=== PATIENT | female | born 1960 | race Caucasian/White ===

== ENCOUNTER 2022-01-25 08:44 | Day surgery (SDC) | payer BC, SELFPAY ==
[2022-01-25] VITALS (16 sets, daily range): BP systolic 135–172; BP diastolic 62–82; PULSE 47–71; RESP 16; TEMP 36.1–37; O2SAT 92–100; BMI 24.2
[2022-01-25] MEDS: LACTATED RINGERS 1000 ML 1,000 ML 100 ML IV ×2 (09:00→11:51)
[2022-01-25] MEDS: SODIUM CHLORIDE 0.9 % (FLUSH) 10 ML SYRINGE IVF (09:23)
[2022-01-25 09:35] LABS: Hemoglobin* 13.2 gm/dL (12.0-16.0)
[2022-01-25 10:07] LABS: Creatinine* 0.8 mg/dL (0.5-1.5); Est. Creatinine Clearance* 46.73; Estimated Glomerular Filt Rate 83.78
--- NOTE | 2022-01-25 11:04 | P.PCN_ITS ---
Procedure Note Time Seen by Provider: 11:04 Date Seen: 01/25/22 Date of procedure: 01/25/22 Will [facility] bill your pro fee for this procedure?: Yes Pre-op diagnosis: Right adnexal cyst. Procedure: Laparoscopic Right oophorectomy, bilateral salpingectomy Procedure Description: Preoperative diagnosis: 61-year-old with right ovarian cyst. Postoperative diagnosis: Right ovarian cyst approximately 6 cm in largest diameter, left ovarian cyst approximately 2 cm in largest diameter. Both with serous/clear fluid. Procedure: Laparoscopic bilateral salpingo oophorectomy Anesthesia: General endotracheal, local Surgeon: Sheila Butler MD Dough Maker: Vickie Gatica MD EBL: 5 mL Urine output: 100 mL clear urine IVF: 1200 ml Specimen: Left ovary and tube, right ovary and tube both to pathology Findings: On exam under anesthesia: The uterus was midposition, less than 8 week size, mobile, without masses or nodularity palpable. Adnexa were without mass or fullness bilaterally. The uterus sounded to 7 cm. On laparoscopy: The uterus, bilateral fallopian tubes and appendix a both appeared normal. Both ovaries had cysts. The right ovary had approximately 6 cm cyst, left ovary proximally 2 cm. Both with serous fluid within. Procedure: Krista was taken to the operating room where general anesthetic was found to be adequate. She was placed in the dorsal lithotomy position and an exam under anesthesia was performed with findings stated above. She was then prepped and draped in a normal sterile manner. A Myers catheter was then placed. A bivalve speculum was then placed in the vaginal canal to visualize the cervix. The anterior lip of the cervix was grasped with an a long Allis clamp. The cervix was dilated to Hegar 6. Uterus was sounded to 7 cm. A [employer] uterine manipulator was then placed. Attention was then turned to performing the laparoscopic portion of the procedure. All incisions were injected with 0.5% Marcaine prior to incision. A vertical 5 mm infraumbilical, incision, was made and a 5 mm trocar placed under direct visualization with the laparoscope. The abdomen was then insufflated with carbon dioxide gas to a pressure of 15 mm of mercury. To bilateral lower quadrant trocars were then placed under direct visualization. Both were placed approximately 3-4 finger breaths medial to the ischial crests. The right trocar was 5 mm the left trocar was 11 mm. A diagnostic laparoscopy was then performed with findings stated above. The right fallopian tube was grasped at the fimbriated and with a sliding graspe r. The infundibulopelvic ligament was then cauterized and divided using the LigaSure dissecting forceps. Sequential pedicles were then formed to the level of the cornua. The fallopian tube and utero-ovarian ligament were cauterized and ligated at the cornua. The tube and ovary were placed in the posterior cul-de-sac. The left fallopian tube and ovary were removed in a similar manner. An Endo-Catch bag was advanced through the 11 mm port and both ovaries and tubes were placed into the catch bag. The ovaries and tubes were then removed through the 11 mm port. The fascia of the 11 mm port was reapproximated using the Jaison-Ant fascial closure device using 0 Vicryl suture. Hemostasis was noted of all pedicles. The trocars were then removed under direct visualization. The CO2 gas was allowed to escape the infraumbilical port prior to its removal. All incisions were reapproximated using 4-0 Monocryl in a running subcuticular manner. LiquiBand skin adhesive was then applied and adhesive dressings applied over each incision. The uterine manipulator and Myers catheter were removed. The patient tolerated this procedure well. Sponge, lap and instrument counts were correct x2 at the end of the procedure and the patient was taken to the recovery area in stable condition. Anesthesia: GETA and local Surgeon: Sheila Butler MD Dough Maker: Vickie Gatica Pathology: specimen obtained, sent to pathology (Right ovary, bilateral fallopi an tubes) Condition: stable Disposition: same day
[2022-01-25] MEDS: BUPIVACAINE 0.5% 30 ML INJECTION (11:36)
--- NOTE | 2022-01-25 12:30 | W.ANESCHARGE ---
Anesthesia Charges Start Date/Time Anesthesia Start Date: 01/25/22 Anesthesia Start Time: 11:07 Stop Date/Time Anesthesia Stop Date: 01/25/22 Anesthesia Stop Time: 12:26 Summary Emergency: No
[2022-01-25] MEDS: fentaNYL 100 MCG/2 ML inj 50 MCG IVP ×2 (12:37→12:44)
[2022-01-25] MEDS: ONDANSETRON 2 MG/ML inj 4 MG IVP (13:15)
--- NOTE | 2022-01-25 14:16 | W.ANESCHARGE ---
Anesthesia Charges Start Date/Time Anesthesia Start Date: 01/25/22 Anesthesia Start Time: 11:07 Stop Date/Time Anesthesia Stop Date: 01/25/22 Anesthesia Stop Time: 12:26 Summary Emergency: No
== END 2022-01-25 15:15 | disposition home or self-care (01) ==
PROVIDERS: PCP Family Medicine; Visit Provider Obstetrics & Gynecology
PROC: (CPT 58661; principal; 2022-01-25 10:45)
DX: D27.1 Benign neoplasm of left ovary (principal); D27.0 Benign neoplasm of right ovary; N83.8 Other noninflammatory disorders of ovary, fallopian tube and broad ligament
CPT/HCPCS: 58661; 00840; 00851; 36415; 82565; 85018; 86850; 86900; 86901; 88307; J0330; J1100; J2250; J2405; J2704; J2710; J3010; J3490; J7120

== ENCOUNTER 2024-09-17 15:30 | Outpatient (RCR) | payer OTHER, SELFPAY | END 2024-11-09 09:45 | disposition home or self-care (01) | PROVIDERS: PCP Family Medicine; Visit Provider Family Medicine | DX: M77.8 Other enthesopathies, not elsewhere classified (principal); S89.92XA Unspecified injury of left lower leg, initial encounter; Z51.89 Encounter for other specified aftercare | CPT/HCPCS: 97110; 97140; 97161 ==

== ENCOUNTER 2024-11-17 15:30 | Outpatient (CLI) | payer OTHER, SELFPAY | END 2024-11-17 15:31 | disposition home or self-care (01) | LOC: NFLDREF 11-24 23:06 | PROVIDERS: PCP Family Medicine; Referring Provider Family Medicine; Visit Provider Physician Assistant | DX: N39.0 Urinary tract infection, site not specified (principal); B96.20 Unspecified Escherichia coli [E. coli] as the cause of diseases classified elsewhere | CPT/HCPCS: 87086 ==